=== PATIENT | female | born 1975 | race Two or more races ===

== ENCOUNTER 2023-12-04 03:49 | Emergency (ER) | payer OTHER ==
[2023-12-04 03:57] VITALS: BP 144/68; PULSE 74; RESP 20; TEMP 98.1; BMI 50.1
[2023-12-04] MEDS ORDERED: MAG HYDROX/AL HYDROX/SIMETH 30 ML UNIT-DOSE CUP ONE (04:01)
[2023-12-04] MEDS: MAG HYDROX/AL HYDROX/SIMETH 30 ML UNIT-DOSE CUP PO ONE (04:02)
[2023-12-04] MEDS: BENZOCAINE/MENTH/CETYLPYRD CL 1 EACH LOZENGE MM PRN (04:04)
[2023-12-04] MEDS ORDERED: ACETAMINOPHEN 325 MG TABLET (FP) ONE (04:31)
[2023-12-04] MEDS ORDERED: ALBUTEROL SO4 2.5/IPRATROPIUM 0.5 INH SOL 3 ML VIAL.NEB. NEB ONE ×2 (04:31→04:35)
[2023-12-04] MEDS: ALBUTEROL SO4 2.5/IPRATROPIUM 0.5 INH SOL 3 ML VIAL.NEB. NEB ONE (04:34)
[2023-12-04] MEDS: ACETAMINOPHEN 500 MG TABLET (FP) PO ONE (04:34)
[2023-12-04 04:35] LABS: BASO % 0.6 % (0-2.0); EOS % 2.7 % (0-4.5); HEMATOCRIT 36.5 % (32.4-45.2); LYMPH % 20.4 % (8-40); MCH 25.7 pg (25.7-33.7); MCHC 32.8 g/dl (32.0-36.0); MEAN CELL VOLUME 78.1 fl (80-96); MEAN PLT VOLUME 9.4 fl (7.5-11.1); NEUT % 71.3 % (42.8-82.8); PLATELET COUNT 217 10^3/uL (134-434); RBC 4.67 M/mm3 (3.60-5.2); RDW 14.7 % (11.6-15.6); WHITE BLOOD COUNT 6.4 K/mm3 (4.0-10.0)
[2023-12-04 04:51] LABS: ALBUMIN 2.9 g/dl (3.4-5.0); BLOOD UREA NITROGEN 19.6 mg/dL (7-18); CALCIUM 8.6 mg/dL (8.5-10.1)
[2023-12-04 04:54] LABS: CREATININE 0.8 mg/dL (0.55-1.3)
[2023-12-04 04:56] LABS: BILIRUBIN,TOTAL 0.4 mg/dL (0.2-1); TOT PROT 6.5 g/dl (6.4-8.2)
[2023-12-04] MEDS ORDERED: BENZOCAINE/MENTH/CETYLPYRD CL 1 EACH LOZENGE MM PRN (05:09)
== END 2023-12-04 05:47 | disposition home or self-care (01) ==
LOC: JER 03:49
PROC: 3E0F7GC Introduction of Other Therapeutic Substance into Respiratory Tract, Via Natural or Artificial Opening (ICD-10-PCS; principal; 2023-12-04)
DX: J45.901 Unspecified asthma with (acute) exacerbation (principal); K21.9 Gastro-esophageal reflux disease without esophagitis; R51.9 Headache, unspecified; R05.9 Cough, unspecified; R07.89 Other chest pain; Z20.822 Contact with and (suspected) exposure to COVID-19
CPT/HCPCS: 0241U-QW; 36415; 71046-TC-FY; 80053; 84484; 85025; 93005; 93010; 99285-25